=== PATIENT | male | born 1985 | race African-American/Black ===

== ENCOUNTER 2018-05-15 21:25 | Emergency (ER) | payer SELFPAY ==
[~2018-05-15] VITALS: Ht 167.6 cm; Wt 90.7 kg
[~2018-05-15 21:25] MED LIST: IBUPROFEN600 MG PO; MARIJUANA
--- NOTE | 2018-05-15 21:44 | Emergency Room Report ---
History of Present Illness General Chief Complaint: Back Pain-No Injury Source: Patient Present Illness [facility] This a 32-year-old male with no significant past medical history. He presents with chief complaint of chest and back pain has been ongoing for 2 weeks. Worse with movement. Worse with coughing and inspiration. Has not take any medicine for it. Pain is localized to the right area. No fever chills but no shortness of breath. No radiation. Pain is 7 out of 10. Allergies: Coded Allergies: No Known Allergies (Unverified , 11/25/13) Patient History Past Medical History: see triage record, old chart reviewed Past Surgical History: other Pertinent Family History: none Social History: Denies: smoking Immunizations: other Reviewed Nursing Documentation: PMH: Agreed; PSxH: Agreed Nursing Documentation-PMH Hx Seizures: Yes - SZ TIMES ONE 2012 Review of Systems Eye: Denies: eye pain, blurred vision ENT: Denies: ear pain, nose congestion, throat swelling Respiratory: Denies: cough, shortness of breath Cardiovascular: Reports: chest pain; Denies: palpitations Gastrointestinal: Denies: abdominal pain, diarrhea, nausea, vomiting Musculoskeletal: Reports: back pain; Denies: joint pain Skin: Denies: rash Neurological: Denies: headache, numbness Endocrine: Denies: increased thirst, increased urine Hematologic/Lymphatic: Denies: easy bruising All Other Systems: negative except mentioned in HPI Physical Exam Vital Signs Date Time Temp Pulse Resp B/P (MAP) Pulse Ox O2 Delivery O2 Flow Rate FiO2 05/15/18 21:29 98.2 97 18 122/75 94 Room Air 98.2 vitals normal Sp02 EP Interpretation: reviewed, normal General Appearance: well appearing, no apparent distress, alert Head: normocephalic, atraumatic Eyes: bilateral eye PERRL, bilateral eye EOMI ENT: hearing grossly normal, normal pharynx Neck: full range of motion, supple, no meningismus Respiratory: chest non-tender, lungs clear, normal breath sounds Cardiovascular #1: regular rate, rhythm, no murmur Gastrointestinal: normal bowel sounds, non tender, no mass, no organomegaly, no bruit, non-distended Musculoskeletal: back normal - tenderness to the right lateral back around the thoracic, upper lumbar area, gait/station normal, normal range of motion Psychiatric: mood/affect normal Skin: warm/dry Medical Decision Making Diagnostic Impression: Primary Impression: Back pain Qualified Codes: M54.6 - Pain in thoracic spine ER Course patient presents with back and chest pain. This is muscular skeletal in nature. No evidence of ACS, PE, dissection. He is resting comfortably. We'll discharge home. Chest X-Ray Diagnostic Results Chest X-Ray Diagnostic Results : Chest X-Ray Ordered: Yes # of Views/Limited/Complete: 1 View Indication: Chest Pain EP Interpretation: Yes Interpretation: no consolidation, no effusion, no pneumothorax, no acute cardiopulmonary disease Impression: No acute disease Electronically Signed by: Deon Hernandez MD Last Vital Signs Date Time Temp Pulse Resp B/P (MAP) Pulse Ox O2 Delivery O2 Flow Rate FiO2 05/15/18 21:29 98.2 97 18 122/75 94 Room Air 98.2 Status: improved Disposition: HOME, SELF-CARE Condition: Stable Scripts Ibuprofen* (MOTRIN*) 600 Mg Tablet 600 MG ORAL THREE TIMES A DAY, #30 TAB 0 Refills Prov: DEON HERNANDEZ M.D. 05/15/18 Patient Instructions: Back Pain, Adult Additional Instructions: Follow-up with your doctor in 7 days. Return if symptom worsen. DEON HERNANDEZ M.D. May 15, 2018 21:44
[2018-05-15] MEDS ORDERED: IBUPROFEN600 MG ORAL (22:01)
[2018-05-15 22:37] VITALS: BP 122/75
--- NOTE | 2018-05-16 11:46 | Diagnostic Imaging Report ---
Indication: Chest pain Technique: One view of the chest Comparison: none Findings: Lungs and pleural spaces are clear. Heart size is normal Impression: No acute process
== END 2018-05-15 22:52 | disposition home or self-care (01) ==
LOC: EMR 21:48
DX: M54.6 Pain in thoracic spine (principal); R07.9 Chest pain, unspecified
CPT/HCPCS: 71045; 99283

== ENCOUNTER 2018-07-31 21:55 | Emergency (ER) | payer MEDICAID ==
[~2018-07-31] VITALS: Ht 167.6 cm; Wt 81.6 kg
[~2018-07-31 21:55] MED LIST changes: +IBUPROFEN600 MG ORAL
[2018-07-31 22:27] VITALS: BP 134/76
--- NOTE | 2018-07-31 22:57 | Emergency Room Report ---
History of Present Illness General Chief Complaint: Flu Like Symptoms Source: Patient Present Illness HPI Mr. Wells is a healthy 32-year-old male who's had cough chills malaise for the last 3-4 weeks.. Nasal congestion. Positive subjective fever. No wheezing. used ibuprofen at home. Does not smoke tobacco. + Smokes marijuana. Allergies: Coded Allergies: No Known Allergies (Unverified , 11/25/13) Patient History Past Medical History: see triage record Social History: Reports: drug use - marijuana Reviewed Nursing Documentation: PMH: Agreed; PSxH: Agreed Nursing Documentation-PMH Past Medical History: No History, Except For Hx Seizures: Yes - SZ TIMES ONE 2012 Review of Systems Constitutional: Reports: chills, sweats, fever, malaise Respiratory: Reports: cough Gastrointestinal: Denies: abdominal pain, nausea, vomiting Skin: Denies: rash Neurological: Denies: headache Physical Exam Vital Signs Date Time Temp Pulse Resp B/P (MAP) Pulse Ox O2 Delivery O2 Flow Rate FiO2 07/31/18 21:57 98.1 99 16 134/76 98 Room Air Sp02 EP Interpretation: reviewed, normal General Appearance: no apparent distress, alert, GCS 15, non-toxic Head: normocephalic, atraumatic Eyes: bilateral eye normal inspection ENT: hearing grossly normal, normal pharynx, no angioedema, normal voice Neck: full range of motion, supple/symm/no masses Respiratory: chest non-tender, lungs clear, normal breath sounds, speaking full sentences Cardiovascular #1: regular rate, rhythm, no edema Cardiovascular #2: 2+ carotid (R), 2+ carotid (L), 2+ radial (R), 2+ radial (L) , 2+ dorsalis pedis (R), 2+ dorsalis pedis (L) Gastrointestinal: normal bowel sounds, non tender, soft, non-distended, no guarding, no rebound Musculoskeletal: back normal, gait/station normal, normal range of motion, non- tender, calf tenderness Neurologic: alert, oriented x3, responsive, motor strength/tone normal, sensory intact, speech normal Psychiatric: judgement/insight normal, memory normal, mood/affect normal, no suicidal/homicidal ideation Skin: normal color, no rash, warm/dry, well hydrated Medical Decision Making Diagnostic Impression: Primary Impression: Acute bronchitis ER Course acute bronchitis, abx indicated for symptoms 3-4 weeks rx: loratadine, prednisone, amoxicillin Last Vital Signs Date Time Temp Pulse Resp B/P (MAP) Pulse Ox O2 Delivery O2 Flow Rate FiO2 07/31/18 22:27 90 16 Room Air 07/31/18 22:27 98.7 134/76 98 Referrals: NOT CHOSEN IPA/,REFERRING (PCP) Polly Guaman MD Jul 31, 2018 22:57
[2018-07-31] MEDS ORDERED: AMOXICILLIN500 MG ORAL (22:59)
[2018-07-31] MEDS ORDERED: PREDNISONE20 M1 PO (22:59)
[2018-07-31] MEDS ORDERED: LORATADINE10 M1 PO (22:59)
[2018-07-31 23:00] VITALS: BP_SYST 131; BP_SYST 134; BP_DIAS 71; BP_DIAS 76
== END 2018-07-31 23:00 | disposition home or self-care (01) ==
LOC: EMR 22:32
DX: J20.9 Acute bronchitis, unspecified (principal)
CPT/HCPCS: 99282

== ENCOUNTER 2019-03-01 17:36 | Emergency (ER) | payer MEDICAID ==
[~2019-03-01] VITALS: Ht 167.6 cm; Wt 90.7 kg
[~2019-03-01 17:36] MED LIST changes: +AMOXICILLIN500 MG ORAL; +LORATADINE10 M1 PO; +PREDNISONE20 M1 PO
[2019-03-01] MEDS ORDERED: NKM (17:45)
[2019-03-01] MEDS ORDERED: Ketorolac 30mg Inj IM ONE (18:00)
--- NOTE | 2019-03-01 18:02 | Emergency Room Report ---
History of Present Illness General Chief Complaint: Headache Source: Patient Present Illness HPI Patient presents with headache. This has been present for 2 days. He feels it frontal. He has sinus trouble frequently. He has some congestion there now, but not too severe. He sometimes takes antihistamines or sprays. He denies any fevers or chills. He's felt nauseated and vomited. There's been no blood in the what he has thrown up. He's had headaches like this in the past. He took ibuprofen last night and it helped minimally. He's feeling weak at this time but not unilaterally and has no numbness. He rates the pain 7/10, non- radiating and constant. He also has tightness in his L shoulder and neck. Never with CT or MRI. States told in past migraine, tension, sinus. No dysuria. No joint pain. No chest pain, dyspnea, cough, sore throat. He last drank alcohol last week. 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 Reviewed Nursing Documentation: PMH: Agreed; PSxH: Agreed Nursing Documentation-PMH Past Medical History: No History, Except For Hx Seizures: Yes - SZ TIMES ONE 2012 Review of Systems All Other Systems: negative except mentioned in HPI Physical Exam Vital Signs Date Time Temp Pulse Resp B/P (MAP) Pulse Ox O2 Delivery O2 Flow Rate FiO2 03/01/19 17:43 97.5 86 16 120/78 (92) 97 Room Air Sp02 EP Interpretation: reviewed, normal General Appearance: well appearing, no apparent distress, GCS 15 Head: normocephalic, atraumatic Eyes: bilateral eye normal inspection, bilateral eye PERRL, bilateral eye EOMI ENT: moist mucus membranes, other - no significant nasal congestion or inflammation Neck: supple, tender lateral - L side Respiratory: lungs clear, normal breath sounds Cardiovascular #1: regular rate, rhythm Cardiovascular #2: 2+ radial (R) Gastrointestinal: normal inspection, normal bowel sounds, non tender, no mass, non-distended Musculoskeletal: back normal, gait/station normal, normal range of motion Neurologic: alert, oriented x3, water and fire technician III-XII nml as tested, motor strength/tone normal, DTRs symmetric, sensory intact, cerebellar normal, normal gait, speech normal Psychiatric: mood/affect normal Skin: normal inspection, warm/dry Medical Decision Making Diagnostic Impression: Primary Impression: Cephalgia Additional Impression: Nausea & vomiting Qualified Codes: R11.2 - Nausea with vomiting, unspecified ER Course Patient presents with headache and nausea. Differential includes migraine, viral syndrome, sinusitis, tension headache amongst others. His neurologic exam is is good and there is no evidence of meningitis - therefore no imaging studies are indicated at this time. The patient will be treated with Zofran and Toradol. Patient improved with treatment. Declines further analgesia. Patient stable for outpatient observation and treatment. Last Vital Signs Date Time Temp Pulse Resp B/P (MAP) Pulse Ox O2 Delivery O2 Flow Rate FiO2 03/01/19 18:59 97.5 75 16 120/78 97 Room Air Status: improved Disposition: HOME, SELF-CARE Condition: Improved Scripts Ondansetron Odt* (ZOFRAN ODT*) 4 Mg Tab.rapdis 4 MG BC EVERY 8 HOURS, #6 TAB 0 Refills Prov: Gaetano Vicente MD 03/01/19 Gaetano Vicente MD Mar 01, 2019 18:02
[2019-03-01 18:18] VITALS: BP 120/78
--- NOTE | 2019-03-01 18:19 | NUR ---
ED Nurse Note:pt. came with c/o nausea and headache , a/ox4 ambulatory with steady gait, pain meds are given continu monitor
[2019-03-01] MEDS ORDERED: ONDANSETRON ODT4 MG BC (18:55)
[2019-03-01 18:59] VITALS: BP 120/78
--- NOTE | 2019-03-01 19:00 | NUR ---
ER DISCHARGE NOTE: Patient is cleared to be discharged per ERMD, pt is aox4, on room air, with stable vital signs. pt was given dc and prescription instructions, pt was able to verbalize understanding, pt is able to ambulate with steady gait. pt took all belongings.
== END 2019-03-01 19:00 | disposition home or self-care (01) ==
LOC: EMR 18:14
DX: R51 Headache (principal); R11.2 Nausea with vomiting, unspecified
CPT/HCPCS: 96372; 99283; J1885